=== PATIENT | male | born 1950 | race Caucasian/White ===

== ENCOUNTER 2017-11-01 15:26 | Inpatient (IN) | payer OTHER ==
--- NOTE | 2017-11-01 16:09 | PDOC ---
History of Present Illness - General Chief Complaint: Pain Stated Complaint: PAIN Time Seen by Provider: 11/01/17 15:52 - History of Present Illness Initial Comments: 11/01/17 16:08 67 yo M with h/o Left inguinal hernia repair x 2 who presents with diffuse, progressive,unremitting, lower predominant abdominal pain. Patient reports acute onset abdominal pain beginning at 1000 AM. Unable to describe character of pain as sharp, dull, crampy. Abdominal and scrotal Pain worse with movement. Denies postprandial pain. Patient with scrotal pain and swelling at baseline. Also endorses dysuria, nausea, decreased appetite, and chills. Denies vomiting, fevers, CP, SOB, diarrhea, constipation, blood per rectum, hematuria, urinary incontinence/frequency, flank pain, lightheadedness, LOC. (01/17/16) CT AP: Left inguinal hernia w/out evidence of incarceration. S/p left inguinal hernia repair [address] [facility], and multiple years ago in . Denies abdominal trauma. Smoking cessation 3 months ago ( 10/06 ppd for 20 years). Past History - Past Medical History Allergies/Adverse Reactions: Allergies Allergy/AdvReac Type Severity Reaction Status Date / Time aspirin Allergy Verified 01/17/16 14:20 Home Medications: Ambulatory Orders NK [No Known Home Medication] 01/17/16 - Surgical History Abdominal Surgery: Yes (HERNIA) - Suicide/Smoking/Psychosocial Hx Smoking History: Never smoked Hx Alcohol Use: No Drug/Substance Use Hx: No Review of Systems - Review of Systems Comments:: 11/01/17 16:08 GENERAL/CONSTITUTIONAL:+ Chills. No fever. No weakness. HEAD, EYES, EARS, NOSE AND THROAT: No change in vision. No ear pain or discharge. No sore throat.- CARDIOVASCULAR: No chest pain or shortness of breath RESPIRATORY: No cough, wheezing, or hemoptysis. GASTROINTESTINAL: + Abdominal pain. No nausea, vomiting, diarrhea or constipation. GENITOURINARY: + dysuria. No frequency, or change in urination. MUSCULOSKELETAL: No joint or muscle swelling or pain. No neck or back pain. SKIN: No rash NEUROLOGIC: No headache, vertigo, loss of consciousness, or change in strength/ sensation. ENDOCRINE: No increased thirst. No abnormal weight change HEMATOLOGIC/LYMPHATIC: No anemia, easy bleeding, or history of blood clots. ALLERGIC/IMMUNOLOGIC: No hives or skin allergy. *Physical Exam - Vital Signs Last Vital Signs Temp Pulse Resp BP Pulse Ox 98.3 F 82 20 116/90 99 11/01/17 15:43 11/01/17 15:43 11/01/17 15:43 11/01/17 15:43 11/01/17 15:43 - Physical Exam Comments: 11/01/17 16:08 GENERAL: Awake, alert, and fully oriented, in no acute distress HEAD: No signs of trauma, normocephalic, atraumatic EYES: PERRLA, EOMI, sclera anicteric, conjunctiva clear ENT: Hearing grossly normal, nares patent, oropharynx clear without exudates. Moist mucosa NECK: Normal ROM, no JVD, or masses LUNGS: No distress, speaks full sentences, clear to auscultation bilaterally HEART: Regular rate and rhythm, normal S1 and S2, no murmurs, rubs or gallops, peripheral pulses normal and equal bilaterally. ABDOMEN: Suprpapubic ttp. Lower abdominal ttp. Soft, nontender, normoactive bowel sounds. No guarding, non rigid, no rebound. No masses. Neg CVA ttp. : R > L inguinal/testicular swelling/bulge and mild ttp. Unable to illicit cremasteric reflex. Neg epidydmal ttp. Absent skin changes. EXTREMITIES : Normal inspection, Normal range of motion, no edema. No clubbing or cyanosis. SKIN: Warm, Dry, normal turgor, no rashes or lesions noted. ED Treatment Course - LABORATORY CBC & Chemistry Diagram: 11/01/17 16:00 11/01/17 16:00 Medical Decision Making - Medical Decision Making 11/01/17 16:55 67 yo M with h/o Left inguinal hernia repair x 2 who presents with diffuse, progressive,unremitting, lower predominant abdominal pain beginning at 1000 AM. Aggravated w/movement. Denies postprandial pain, lifting, straining. Patient with scrotal pain and swelling at baseline. Endorses dysuria, nausea, decreased appetite, and chills. Denies vomiting, fevers, CP, SOB, diarrhea, constipation, blood per rectum, hematuria, urinary incontinence/frequency, flank pain, lightheadedness, LOC. (01/17/16) CT AP: Left inguinal hernia w/out evidence of incarceration. S/p left inguinal hernia repair [address] [facility], and multiple years ago in [place] Denies abdominal trauma. Smoking cessation 3 months ago ( 10/06 ppd for 20 years). Hedmodynamically stable. Physical exam noteable for Suprpapubic ttp. Lower abdominal ttp. R > L inguinal/testicular swelling/ bulge and mild ttp. Unable to illicit cremasteric reflex. Neg epidydmal ttp. Absent skin changes. Will consider cystitis in setting of lower abdominal pain and dysuria. Also concern of hernia incarceration vs strangulation given h/o muliptle hernia repair and acute groin pain. Testicular pathology is possible with findings of testicular swelling and pain. DDx: Incarcerated vs. Strangulated hernia ( Less likely), Cystitis, varicocele, testicular Torsion, epidydymitis . ED Course: CBC, CMP, lactic acid UA CT AP W/CON BL LE Doppler Morphine 2mg, Zofran 4 mg CBC, CMP: Unremarkable 11/01/17 17:34 UA: Trace Ketones. Neg 11/01/17 18:42 lactic acid: 1.7 11/01/17 19:07 Scrotal U/S: No evidence of testicular torsion or epididymal orchitis. Rt side inguinal hernia contains bowel, fluid, fat. CT AP: Pending 11/01/17 19:[address] Carrion. *DC/Admit/Observation/Transfer Diagnosis at time of Disposition: Abdominal pain Qualifiers: Abdominal location: lower abdomen, unspecified Qualified Code(s): R10.30 - Lower abdominal pain, unspecified Inguinal hernia Qualifiers: Obstruction and gangrene presence: without obstruction or gangrene Laterality: unilateral Recurrence: recurrent Qualified Code(s): K40.91 - Unilateral inguinal hernia, without obstruction or gangrene, recurrent - Discharge Dispostion Condition at time of disposition: Stable - Referrals Referrals: Ryan Leyva MD [Primary Care Provider] - Alvaro Clark MD [Staff Physician] - - Patient Instructions Printed Discharge Instructions: Groin Hernia -- Adult Additional Instructions: Please return to the emergency department with any new or worsening symptoms or concerns. Please follow up with your primary care physician within the next 1-2 days. Please follow up with urology within 72 hours. - Post Discharge Activity - Attestations Physician Attestion: 11/01/17 18:19 I attest to the information provided in this note.
[2017-11-01 16:25] LABS: BASO % 0.6 % (0-2.0); EOS % 0.3 % (0-4.5); HEMATOCRIT 45.7 % (35.4-49); HEMOGLOBIN 15.1 GM/dL (11.7-16.9); LYMPH % 11.1 % (8-40); MCH 29.5 pg (25.7-33.7); MEAN CELL VOLUME 89.5 fl (80-96); MEAN PLT VOLUME 9.9 fl (7.5-11.1); PLATELET COUNT 167 K/MM3 (134-434); RBC 5.11 M/mm3 (4.00-5.60); RDW 13.8 % (11.9-15.9)
[2017-11-01 16:43] LABS: INR 1.05 (0.82-1.09); PROTHROMBIN TIME (PATIENT) 11.9 SEC (9.98-11.88)
[2017-11-01 16:50] LABS: ALBUMIN 4.4 g/dl (3.4-5.0); ALK PHOS 81 U/L (45-117); ANION GAP 7 (8-16); BILIRUBIN,TOTAL 0.4 mg/dL (0.2-1.0); BLOOD UREA NITROGEN 21 mg/dL (7-18); CALCIUM 8.8 mg/dL (8.5-10.1); CHLORIDE 105 mmol/L (98-107); CO2 28 mmol/L (21-32); CREATININE 0.9 mg/dL (0.7-1.3); GLUCOSE,RANDOM 91 mg/dL (74-106); POTASSIUM 4.6 mmol/L (3.5-5.1); SGOT/AST 22 U/L (15-37); SGPT/ALT 20 U/L (12-78); SODIUM 140 mmol/L (136-145); TOT PROT 7.9 g/dl (6.4-8.2)
[2017-11-01 16:57] LABS: URINE APPEARANCE CLEAR; URINE BILIRUBIN NEGATIVE (NEGATIVE); URINE BLOOD NEGATIVE (NEGATIVE); URINE COLOR YELLOW; URINE GLUCOSE (UA) NEGATIVE (NEGATIVE); URINE KETONE TRACE (NEGATIVE); URINE LEUK ESTERASE TRACE (NEGATIVE); URINE NITRITE NEGATIVE (NEGATIVE); URINE PROTEIN NEGATIVE (NEGATIVE)
[2017-11-01] MEDS ORDERED: ONDANSETRON 4 MG/2 ML VIAL IVPUSH ONE (17:19)
[2017-11-01] MEDS ORDERED: morphine CARPU-JECT 2 MG/1 ML DISP.SYRIN IVPUSH ONE (17:19)
[2017-11-01] MEDS ORDERED: ONDANSETRON 4 MG/2 ML VIAL ONE (17:22)
[2017-11-01] MEDS ORDERED: MORPHINE SULFATE 10 MG/1 ML *VIAL ONE (17:22)
--- NOTE | 2017-11-01 17:47 | PDOC ---
Attending Attestation - Resident Resident Name: Adrian Louise - ED Attending Attestation I have performed the following: I have examined & evaluated the patient, The case was reviewed & discussed with the resident, I agree w/resident's findings & plan, Exceptions are as noted - HPI HPI: 11/01/17 17:46 67 YO male p/w bilateral inguinal and c/o chronic swollen testicles. His supra pubic pain started today at 10 am today - Physicial Exam PE: 11/01/17 17:47 elderly 67 yo male with suprapubic pain head ncat neck supple lungs cta b/l cvs [id number] abd BILATERAL HERNIAS palable mild testicular swelling neuro axox3,ambulatory skin warm,dry psych appropriate 11/01/17 20:30 - Medical Decision Making 11/01/17 20:31 ct scan abd/pel reveals partial sbo, he will be adimtted by Dr Man
[2017-11-01 18:55] LABS: URINE MUCUS FEW
--- NOTE | 2017-11-01 19:35 | PDOC ---
*Physical Exam - Vital Signs Last Vital Signs Temp Pulse Resp BP Pulse Ox 98.6 F 87 20 131/75 98 11/01/17 18:58 11/01/17 18:58 11/01/17 18:58 11/01/17 18:58 11/01/17 18:58 ED Treatment Course - LABORATORY CBC & Chemistry Diagram: 11/01/17 16:00 11/01/17 16:00 - ADDITIONAL ORDERS Additional order review: Laboratory Results 11/01/17 11/01/17 11/01/17 16:25 16:00 16:00 PT with INR INR Sodium 140 Potassium 4.6 Chloride 105 Carbon Dioxide 28 Anion Gap 7 L BUN 21 H D Creatinine 0.9 D Creat Clearance w eGFR > 60 Random Glucose 91 Lactic Acid 1.7 Calcium 8.8 Total Bilirubin 0.4 D AST 22 ALT 20 Alkaline Phosphatase 81 Total Protein 7.9 Albumin 4.4 Urine Color Yellow Urine Appearance Clear Urine pH 6.0 Ur Specific [place] 1.023 Urine Protein Negative Urine Glucose (UA) Negative Urine Ketones Trace H Urine Blood Negative Urine Nitrite Negative Urine Bilirubin Negative Urine Urobilinogen 2.0 Ur Leukocyte Esterase Trace Urine WBC (Auto) 3 Urine RBC (Auto) 2 Urine Mucus Few 11/01/17 16:00 PT with INR 11.90 H INR 1.05 Sodium Potassium Chloride Carbon Dioxide Anion Gap BUN Creatinine Creat Clearance w eGFR Random Glucose Lactic Acid Calcium Total Bilirubin AST ALT Alkaline Phosphatase Total Protein Albumin Urine Color Urine Appearance Urine pH Ur Specific [place] Urine Protein Urine Glucose (UA) Urine Ketones Urine Blood Urine Nitrite Urine Bilirubin Urine Urobilinogen Ur Leukocyte Esterase Urine WBC (Auto) Urine RBC (Auto) Urine Mucus 11/01/17 16:00 RBC 5.11 MCV 89.5 MCHC 33.0 RDW 13.8 MPV 9.9 Neutrophils % 83.0 H Lymphocytes % 11.1 D Monocytes % 5.0 Eosinophils % 0.3 Basophils % 0.6 - Medications Given in the ED: ED Medications Discontinued Medications Generic Name Dose Route Start Last Admin Trade Name Freq PRN Reason Stop Dose Admin Morphine Sulfate 2 mg 11/01/17 17:19 11/01/17 17:20 Morphine Injection - IVPUSH 11/01/17 17:20 2 mg ONCE ONE Administration Ondansetron HCl 4 mg 11/01/17 17:19 11/01/17 17:21 Zofran Injection IVPUSH 11/01/17 17:20 4 mg ONCE ONE Administration Medical Decision Making - Medical Decision Making 11/01/17 19:35 Pt signed out to me by jewell Naranjo team. Pt is pending CTAP read and will f/u with urology if everything is negative. 11/01/17 20:29 CTAP Read: Impression: 1. High-grade small bowel obstruction (complete versus partial) with transition points at a large right inguinal hernia, as described above. Mildly dilated small bowel loop within the hernia sac - cannot exclude a closed loop. No definite bowel wall thickening to suggest strangulated bowel at this time. Please correlate for incarceration. Surgical evaluation is recommended. 2. Circumferential wall thickening versus underdistention of the distal esophagus. Please correlate for esophagitis. 3. A 3 mm nonobstructing right renal calculus. No hydroureteronephrosis. Dr. Man has accepted admission for a med/surg bed. Dr. Dempsey has been consulted for surgery. *DC/Admit/Observation/Transfer Diagnosis at time of Disposition: Abdominal pain Qualifiers: Abdominal location: lower abdomen, unspecified Qualified Code(s): R10.30 - Lower abdominal pain, unspecified Inguinal hernia Qualifiers: Obstruction and gangrene presence: without obstruction or gangrene Laterality: unilateral Recurrence: recurrent Qualified Code(s): K40.91 - Unilateral inguinal hernia, without obstruction or gangrene, recurrent - Discharge Dispostion Condition at time of disposition: Stable Admit: Yes - Referrals Referrals: Ryan Leyva MD [Primary Care Provider] - Alvaro Clark MD [Staff Physician] - - Patient Instructions Printed Discharge Instructions: Groin Hernia -- Adult Additional Instructions: Please return to the emergency department with any new or worsening symptoms or concerns. Please follow up with your primary care physician within the next 1-2 days. Please follow up with urology within 72 hours. - Post Discharge Activity
[2017-11-01] MEDS ORDERED: SODIUM CHLORIDE 0.9% 1000 ML INFUS.BAG IV ONE (20:45)
[2017-11-01] MEDS ORDERED: CEFAZOLIN 1 GM PUSH 1 GM/10 ML DISP.SYRIN IVPUSH ONE ×2 (20:58→21:04)
--- NOTE | 2017-11-01 23:16 | HP ---
Admitting History and Physical - Primary Care Physician PCP: Alhaji Man - Admission Chief Complaint: abdominal pain History of Present Illness: 67 yo M with h/o Left inguinal hernia repair x 2 who presents with diffuse, progressive,unremitting, lower predominant abdominal pain. Patient reports acute onset abdominal pain beginning at 1000 AM. Unable to describe character of pain as sharp, dull, crampy. Abdominal and scrotal Pain worse with movement. Denies postprandial pain. Patient with scrotal pain and swelling at baseline. Also endorses dysuria, nausea, decreased appetite, and chills. Denies vomiting, fevers, CP, SOB, diarrhea, constipation, blood per rectum, hematuria, urinary incontinence/frequency, flank pain, lightheadedness, LOC. (01/17/16) CT AP: Left inguinal hernia w/out evidence of incarceration. S/p left inguinal hernia repair 2 years ago [place], and multiple years ago in [place] - Smoking History Smoking history: Never smoked - Alcohol/Substance Use Hx Alcohol Use: No Home Medications - Allergies Allergies/Adverse Reactions: Allergies Allergy/AdvReac Type Severity Reaction Status Date / Time aspirin Allergy Verified 01/17/16 14:20 - Home Medications Home Medications: Ambulatory Orders NK [No Known Home Medication] 01/17/16 Physical Examination Vital Signs: Vital Signs Temperature 98.6 F 11/01/17 18:58 Pulse Rate 87 11/01/17 18:58 Respiratory Rate 20 11/01/17 18:58 Blood Pressure 131/75 11/01/17 18:58 O2 Sat by Pulse Oximetry (%) 98 11/01/17 18:58 Constitutional: Yes: Calm HENT: Yes: Atraumatic Neck: Yes: Supple Cardiovascular: Yes: Regular Rate and Rhythm Respiratory: Yes: CTA Bilaterally Gastrointestinal: Yes: Tenderness (R lower quadrant) Extremities: Yes: WNL Neurological: Yes: Alert, Oriented Labs: CBC, BMP 11/01/17 16:00 11/01/17 16:00 Imaging - Results Cat Scan: Report Reviewed Problem List - Problems (1) Abdominal pain Assessment/Plan: prn pain meds surgery eval Code(s): R10.9 - UNSPECIFIED ABDOMINAL PAIN Qualifiers: Abdominal location: lower abdomen, unspecified Qualified Code(s): R10.30 - Lower abdominal pain, unspecified (2) Inguinal hernia Assessment/Plan: prn pain meds surgery to see pt Code(s): K40.90 - UNIL INGUINAL HERNIA, W/O OBST OR GANGR, NOT SPCF RECUR Qualifiers: Obstruction and gangrene presence: without obstruction or gangrene Laterality: unilateral Recurrence: recurrent Qualified Code(s): K40.91 - Unilateral inguinal hernia, without obstruction or gangrene, recurrent Assessment/Plan Laboratory Tests 11/01/17 11/01/17 11/01/17 16:00 16:00 16:00 WBC 9.0 RBC 5.11 Hgb 15.1 Hct 45.7 MCV 89.5 MCH 29.5 MCHC 33.0 RDW 13.8 Plt Count 167 MPV 9.9 Neutrophils % 83.0 H Lymphocytes % 11.1 D Monocytes % 5.0 Eosinophils % 0.3 Basophils % 0.6 PT with INR 11.90 H INR 1.05 Sodium Potassium Chloride Carbon Dioxide Anion Gap BUN Creatinine Creat Clearance w eGFR Random Glucose Lactic Acid Calcium Total Bilirubin AST ALT Alkaline Phosphatase Total Protein Albumin Urine Color Yellow Urine Appearance Clear Urine pH 6.0 Ur Specific [place] 1.023 Urine Protein Negative Urine Glucose (UA) Negative Urine Ketones Trace H Urine Blood Negative Urine Nitrite Negative Urine Bilirubin Negative Urine Urobilinogen 2.0 Ur Leukocyte Esterase Trace Urine WBC (Auto) 3 Urine RBC (Auto) 2 Urine Mucus Few 11/01/17 11/01/17 16:00 16:25 WBC RBC Hgb Hct MCV MCH MCHC RDW Plt Count MPV Neutrophils % Lymphocytes % Monocytes % Eosinophils % Basophils % PT with INR INR Sodium 140 Potassium 4.6 Chloride 105 Carbon Dioxide 28 Anion Gap 7 L BUN 21 H D Creatinine 0.9 D Creat Clearance w eGFR > 60 Random Glucose 91 Lactic Acid 1.7 Calcium 8.8 Total Bilirubin 0.4 D AST 22 ALT 20 Alkaline Phosphatase 81 Total Protein 7.9 Albumin 4.4 Urine Color Urine Appearance Urine pH Ur Specific [place] Urine Protein Urine Glucose (UA) Urine Ketones Urine Blood Urine Nitrite Urine Bilirubin Urine Urobilinogen Ur Leukocyte Esterase Urine WBC (Auto) Urine RBC (Auto) Urine Mucus Active Medications Generic Name Dose Route Start Last Admin Trade Name Freq PRN Reason Stop Dose Admin Acetaminophen 325 mg 11/02/17 13:04 11/02/17 18:41 Tylenol - PO 11/05/17 13:03 325 mg Q4H PRN Administration Lactated Ringer's 1,000 mls @ 75 mls/hr 11/02/17 22:15 Lactated Ringers Solution IV ASDIR SEAN Morphine Sulfate 2 mg 11/02/17 13:07 Morphine Injection - IVPUSH Q4H PRN Oxycodone HCl 5 mg 11/02/17 13:04 11/02/17 18:42 Roxicodone - PO 5 mg Q4H PRN Administration
[2017-11-01] MEDS ORDERED: HYDROmorphone HCL CARPU-JECT 2 MG/1 ML DISP.SYRIN IVPB PRN (23:21)
[2017-11-01] MEDS ORDERED: SODIUM CHLORIDE 1,000 ML IV SCH (23:30)
[2017-11-02 03:53] VITALS: BMI 25.9
--- NOTE | 2017-11-02 07:15 | CONSULT ---
- Consultation REQUESTING PROVIDER: Sean Dempsey - General Surgery CONSULT REQUEST: We have been asked to surgically evaluate this patient for incarcerated RIH PCP: Alhaji Man HPI: Called to alo 67 yo male with PMHx as noted below. Presents to [facility] ED w/ c/o diffuse (LLQ/RLQ), progressive abd pain. Started around 10AM yesterday. Has known bilat inguinal hernia's. Of which, left has been repaired twice (once at [facility] and once in ). Admits to loss of appetite, nausea and chills. Some dysuria. Also c/o of some testicular pain. Denies fever, CP, SOB, VAZQUEZ, diarrhea, melena, hematochazia, flank pain, hematuria or trauma. Currently, resting in position of comfort. Still not passing flatus/stool. Imaging studies while patient in ED: 1. CT --> High-grade sb obstruction w/ transition points at a large right inguinal hernia. Mildly dilated sb loop within the hernia sac 2. Scrotal U/S: No evidence of testicular torsion or epididymal orchitis. Rt side inguinal hernia contains bowel, fluid, fat. PMHx: bilat inguinal, chronic swollen testicles PSHx: Left IHR x2 2016 at [facility] Home Meds: Denies. Allergies: ASA ROS: All systems reviewed and considered negative except for what's contained in HPI PE: GENERAL: alert. nad. HEAD: nc. at. EYES: PERRL, sclera anicteric, conjunctiva clear. NECK: Normal ROM, supple without lymphadenopathy, JVD, or masses. LUNGS: cta bilat anteriorly HEART: rrr ABDOMEN: Soft, mild suprapubic tenderness. Right inguinal region ttp. No bowel sounds auscultated over hernia : uncircumcised (skin retratced over the glans), no scrotal swelling/edema MUSCULOSKELETAL: neg cvat bilat UE: 2+ pulses, warm, well-perfused. No cyanosis. Cap refill <2 seconds. No peripheral edema. LE: 2+ pulses, warm, well-perfused. No calf tenderness. No peripheral edema. NEUROLOGICAL: Normal speech, gait not observed. PSYCH: Cooperative. Good eye contact. Appropriate mood and affect. SKIN: Warm, dry, normal turgor, no rashes or lesions noted. Last Vital Signs Temp Pulse Resp BP Pulse Ox 98.6 F 65 18 106/57 98 11/02/17 03:42 11/02/17 00:57 11/02/17 04:03 11/02/17 03:42 11/01/17 18:58 INR, PTT INR 1.05 (0.82-1.09) 11/01/17 16:00 CBC, BMP 11/01/17 16:00 11/01/17 16:00 Problem List - Problems (1) Inguinal hernia Assessment/Plan: Going to OR today around 9AM for repair of incarcerated inguinal hernia resulting in SBO NPO / IVF GI / DVT ppx Type and screen ordered Medical optimization / clearance Above plan discussed with Dr. Dempsey and agrees. Code(s): K40.90 - UNIL INGUINAL HERNIA, W/O OBST OR GANGR, NOT SPCF RECUR Qualifiers: Obstruction and gangrene presence: without obstruction or gangrene Laterality: unilateral Recurrence: recurrent Qualified Code(s): K40.91 - Unilateral inguinal hernia, without obstruction or gangrene, recurrent Visit type - Case Type Case Type: ED Admission - Emergency Emergency Visit: Yes ED Registration Date: 11/01/17 Care time: The patient presented to the Emergency Department on the above date and was hospitalized for further evaluation of their emergent condition. - New patient This patient is new to me today: Yes Date on this admission: 11/02/17
[2017-11-02 07:53] LABS: BASO % 0.3 % (0-2.0); EOS % 3.4 % (0-4.5); HEMATOCRIT 39.3 % (35.4-49); HEMOGLOBIN 12.8 GM/dL (11.7-16.9); MCH 29.1 pg (25.7-33.7); MCHC 32.5 g/dl (32.0-35.9); MEAN CELL VOLUME 89.5 fl (80-96); MEAN PLT VOLUME 9.8 fl (7.5-11.1); MONO % 7.3 % (3.8-10.2); PLATELET COUNT 147 K/MM3 (134-434); RBC 4.38 M/mm3 (4.00-5.60); RDW 13.6 % (11.9-15.9); WHITE BLOOD COUNT 6.5 K/mm3 (4.0-10.0)
[2017-11-02] MEDS ORDERED: BUPIVACAINE HCL/PF 0.5% (5MG/ML) 10 ML VIAL ONE (08:37)
--- NOTE | 2017-11-02 08:56 | PN ---
Progress Note (short form) - Note Progress Note: Attending Surgeon 67 y/o male presented to the ER w/ right groin pain and mass; w/u reveals incarcerated RIH; for repair RIH; possible SBR and AOSDN; r/b/t/a's d/w patient and informed consent obtained; possible recurrence discussed as well. Sean Dempsey MD FACS
[2017-11-02] MEDS ORDERED: HYDROmorphone HCL CARPU-JECT 1 MG/1 ML DISP.SYRIN IVPUSH PRN ×2 (09:05→12:04)
[2017-11-02] MEDS ORDERED: LACTATED RINGERS SOLUTION 1,000 ML IV SCH ×3 (09:15→22:15)
[2017-11-02] MEDS ORDERED: ROCURONIUM BROMIDE 50 MG/5 ML VIAL ONE (09:19)
[2017-11-02] MEDS ORDERED: LIDOCAINE HCL/PF 2% SDV 5ML VIAL ONE (09:19)
[2017-11-02] MEDS ORDERED: PROPOFOL 20 ML ONE ×2 (09:19)
[2017-11-02] MEDS ORDERED: MIDAZOLAM HCL 2 MG/2 ML SINGLE DOSE VIAL ONE (09:19)
[2017-11-02] MEDS ORDERED: ceFAZolin SODIUM 1 GM VIAL ONE (09:19)
[2017-11-02 09:28] LABS: ANION GAP 8 (8-16); BILIRUBIN,TOTAL 0.6 mg/dL (0.2-1.0); BLOOD UREA NITROGEN 16 mg/dL (7-18); CALCIUM 7.9 mg/dL (8.5-10.1); CHLORIDE 109 mmol/L (98-107); CO2 29 mmol/L (21-32); CREATININE 0.7 mg/dL (0.7-1.3); GLUCOSE,RANDOM 72 mg/dL (74-106); SGOT/AST 19 U/L (15-37); SGPT/ALT 15 U/L (12-78); SODIUM 146 mmol/L (136-145); TOT PROT 6.1 g/dl (6.4-8.2)
[2017-11-02 09:29] LABS: ALK PHOS 61 U/L (45-117)
[2017-11-02] MEDS ORDERED: ceFAZolin SODIUM 1 GM VIAL IVPB ONE (09:40)
[2017-11-02] MEDS ORDERED: FLU VACCINE QUAD 60 MCG/0.5 ML (MDV 17-18) IM ONE ×2 (10:00→18:00)
[2017-11-02] MEDS ORDERED: BUPIVACAINE HCL/PF 0.5% (5MG/ML) 10 ML VIAL IJ ONE ×2 (10:04)
[2017-11-02] MEDS ORDERED: LIDOCAINE HCL 1%, 10 MG/ML (20ML VIAL) INF ONE ×2 (10:04)
[2017-11-02] MEDS ORDERED: GLYCOPYRROLATE 0.2 MG/1 ML VIAL ONE (10:32)
[2017-11-02] MEDS ORDERED: DEXAMETHASONE SOD PHOSPHATE 4 MG/1 ML VIAL ONE (10:32)
[2017-11-02] MEDS ORDERED: NEOSTIGMINE METHYLSULFATE 0.5 MG/ML - 10 ML MDV ONE (10:32)
--- NOTE | 2017-11-02 11:15 | OP ---
Operative Note - Note: Operative Date: 11/02/17 Pre-Operative Diagnosis: incarcerated right inguinal hernia Operation: repair incarcerated right inguinal hernia w/mesh Findings: incarcerated right inguinal hernia w/omentum; viable bowel and clear peritoneal fluid. Post-Operative Diagnosis: Same as Pre-op Surgeon: Sean Dempsey Prison Warden: Carli Larsen Anesthesia: General Specimens Removed: hernia sac Estimated Blood Loss (mls): 20
--- NOTE | 2017-11-02 11:24 | SURG ---
Surgery Refrigeration Plant Operator Note Refrigeration Plant Operator: Faraz Shoemaker PA-C Date of Service: 11/02/17 Diagnosis: Incarcerated right inguinal hernia (bowel contents in hernia sac resulting in SBO) Procedure: Repair right incarcerated inguinal hernia Findings: omentum and small bowel (viable) within hernia sac I was present for the entirety of the operative procedure. For further detail, please refer to operative report. Visit type - Case Type Case Type: ED Admission
[2017-11-02] MEDS ORDERED: LIDOCAINE HCL 1%, 10 MG/ML (20ML VIAL) ONE (11:28)
[2017-11-02] MEDS ORDERED: HYDROmorphone HCL CARPU-JECT 2 MG/1 ML DISP.SYRIN ONE (11:41)
[2017-11-02] MEDS ORDERED: SODIUM CHLORIDE 1,000 ML IV SCH (12:04)
[2017-11-02] MEDS ORDERED: MORPHINE SULFATE 10 MG/1 ML *VIAL IVPUSH PRN ×2 (13:05→13:07)
--- NOTE | 2017-11-02 13:11 | PN ---
Progress Note, Physician History of Present Illness: s/p surgery - Current Medication List Current Medications: Active Medications Acetaminophen (Tylenol -) 325 mg PO Q4H PRN Stop: 11/05/17 13:03 Hydromorphone HCl (Dilaudid Injection -) 1 mg IVPUSH [id number] PRN PRN Reason: PAIN-PACU ORDER X 4 DOSES ONLY Lactated Ringer's (Lactated Ringers Solution) 1,000 mls @ 125 mls/hr IV ASDIR SEAN Sodium Chloride (Normal Saline -) 1,000 mls @ 75 mls/hr IV ASDIR SEAN Lactated Ringer's (Lactated Ringers Solution) 1,000 mls @ 75 mls/hr IV ASDIR SEAN Morphine Sulfate (Morphine Injection -) 2 mg IVPUSH Q4H PRN Oxycodone HCl (Roxicodone -) 5 mg PO Q4H PRN - Objective Vital Signs: Vital Signs Temperature 98.7 F 11/02/17 11:18 Pulse Rate 70 11/02/17 12:00 Respiratory Rate 16 11/02/17 12:00 Blood Pressure 120/77 11/02/17 12:00 O2 Sat by Pulse Oximetry (%) 100 11/02/17 12:00 Constitutional: Yes: No Distress HENT: Yes: Atraumatic Neck: Yes: Supple Cardiovascular: Yes: Regular Rate and Rhythm Respiratory: Yes: CTA Bilaterally Gastrointestinal: Yes: Normal Bowel Sounds, Other (R inguinal area wound dressing i place) Extremities: Yes: WNL Neurological: Yes: Alert, Oriented Labs: CBC, BMP 11/02/17 06:30 11/02/17 06:30 INR, PTT INR 1.05 (0.82-1.09) 11/01/17 16:00 Problem List - Problems (1) Abdominal pain Assessment/Plan: prn pain meds Code(s): R10.9 - UNSPECIFIED ABDOMINAL PAIN Qualifiers: Abdominal location: lower abdomen, unspecified Qualified Code(s): R10.30 - Lower abdominal pain, unspecified (2) Inguinal hernia Assessment/Plan: s/p surgery on clear liquid diet Code(s): K40.90 - UNIL INGUINAL HERNIA, W/O OBST OR GANGR, NOT SPCF RECUR Qualifiers: Obstruction and gangrene presence: without obstruction or gangrene Laterality: unilateral Recurrence: recurrent Qualified Code(s): K40.91 - Unilateral inguinal hernia, without obstruction or gangrene, recurrent
[2017-11-02] MEDS: LACTATED RINGERS SOLUTION 1,000 ML IV SCH ×2 (13:35→22:07)
--- NOTE | 2017-11-02 13:49 | EKG ---
Test Reason : Blood Pressure : / mmHG Vent. Rate : 061 BPM Atrial Rate : 061 BPM P-R Int : 162 ms QRS Dur : 112 ms QT Int : 412 ms P-R-T Axes : 062 049 030 degrees QTc Int : 414 ms NORMAL SINUS RHYTHM NORMAL ECG NO PREVIOUS ECGS AVAILABLE Confirmed by MD NATHANAEL, LIBRA ([id number]) on 11/02/2017 1:49:04 PM Referred By: LATONIA NIXON DR Confirmed By:LIBRA HUFFMAN MD
--- NOTE | 2017-11-02 14:01 | CON.ID ---
Consult Consult Specialty:: infectious diseases Reason for Consultation:: abd pain - History of Present Illness Chief Complaint: abd pain rt side History of Present Illness: 67 yo M with h/o Left inguinal hernia repair x 2 admitted because of, progressive,unremitting, lower predominant abdominal pain. patient was worked up and found to have incarcerated rt ing hernia patient was taken to surgery and operated currently patient is post op c/o of pain at operated site dressing looks good with some blood staining - History Source History Provided By: Patient, Medical Record Limitations to Obtaining History: Language Barrier - Alcohol/Substance Use Hx Alcohol Use: No - Smoking History Smoking history: Never smoked Home Medications - Allergies Allergies/Adverse Reactions: Allergies Allergy/AdvReac Type Severity Reaction Status Date / Time aspirin Allergy Verified 01/17/16 14:20 - Home Medications Home Medications: Ambulatory Orders NK [No Known Home Medication] 01/17/16 Review of Systems - Review of Systems Constitutional: reports: No Symptoms Eyes: reports: No Symptoms HENT: reports: No Symptoms Neck: reports: No Symptoms Cardiovascular: reports: No Symptoms Respiratory: reports: No Symptoms Gastrointestinal: reports: Abdominal Pain Musculoskeletal: reports: No Symptoms Integumentary: reports: No Symptoms Neurological: reports: No Symptoms Endocrine: reports: No Symptoms Hematology/Lymphatic: reports: No Symptoms Psychiatric: reports: No Symptoms Physical Exam Vital Signs: Vital Signs Temperature 98.4 F 11/02/17 12:30 Pulse Rate 66 11/02/17 12:30 Respiratory Rate 14 11/02/17 12:30 Blood Pressure 131/76 11/02/17 12:30 O2 Sat by Pulse Oximetry (%) 100 11/02/17 12:30 Constitutional: Yes: Well Nourished, Calm, Mild Distress Eyes: Yes: Conjunctiva Clear Neck: Yes: Supple, Trachea Midline Respiratory: Yes: Regular, CTA Bilaterally Gastrointestinal: Yes: Soft, Hypoactive Bowel Sounds Musculoskeletal: Yes: WNL Extremities: Yes: WNL Wound/Incision: Yes: Other (dressing slightly wet) Neurological: Yes: Alert, Oriented Psychiatric: Yes: Alert, Oriented Labs: CBC, BMP 11/02/17 06:30 11/02/17 06:30 Imaging - Results Cat Scan: Report Reviewed, Image Reviewed Ultrasound: Report Reviewed, Image Reviewed Assessment/Plan Problem List - Problems (1) Abdominal pain Code(s): R10.9 - UNSPECIFIED ABDOMINAL PAIN Qualifiers: Abdominal location: lower abdomen, unspecified Qualified Code(s): R10.30 - Lower abdominal pain, unspecified (2) Inguinal hernia Code(s): K40.90 - UNIL INGUINAL HERNIA, W/O OBST OR GANGR, NOT SPCF RECUR Qualifiers: Obstruction and gangrene presence: without obstruction or gangrene Laterality: unilateral Recurrence: recurrent Qualified Code(s): K40.91 - Unilateral inguinal hernia, without obstruction or gangrene, recurrent plan continue mgmt as per surgery no abx at this time will continue to watch rest as per primary team
[2017-11-02] MEDS: ACETAMINOPHEN 325 MG TABLET (FP) PO PRN (18:41)
[2017-11-02] MEDS: oxyCODONE HCL 5 MG TABLET PO PRN (18:42)
[2017-11-03 06:53] LABS: HEMOGLOBIN 13.6 GM/dL (11.7-16.9); MCH 29.6 pg (25.7-33.7); MCHC 33.3 g/dl (32.0-35.9); MEAN PLT VOLUME 9.7 fl (7.5-11.1); PLATELET COUNT 152 K/MM3 (134-434); RBC 4.61 M/mm3 (4.00-5.60); RDW 13.5 % (11.9-15.9); WHITE BLOOD COUNT 9.5 K/mm3 (4.0-10.0)
[2017-11-03 07:10] LABS: ANION GAP 6 (8-16); BLOOD UREA NITROGEN 11 mg/dL (7-18); CALCIUM 8.3 mg/dL (8.5-10.1); CHLORIDE 102 mmol/L (98-107); CO2 30 mmol/L (21-32); CREATININE 0.8 mg/dL (0.7-1.3); GLUCOSE,RANDOM 82 mg/dL (74-106); SODIUM 138 mmol/L (136-145)
--- NOTE | 2017-11-03 08:03 | PN ---
Progress Note (short form) - Note Progress Note: POD #1 Alert. Supine in bed. Resting comfortably. C/o ild incisional tenderness. Adequate pain control via prn meds. Started on liquid diet last night and is tolerating. Denies n/v/f/c, CP, SOB. Last Vital Signs Temp Pulse Resp BP Pulse Ox 97.5 F L 72 18 140/81 95 11/03/17 06:00 11/03/17 06:00 11/03/17 06:00 11/03/17 06:00 11/02/17 21:00 CBC 11/03/17 06:17 Gen: nad ABD: soft. Right groin dressing c/d/i. No hematoma : scrotal swelling (to be expected). Testicles descended x2. Problem List - Problems (1) Inguinal hernia Assessment/Plan: POD #1 s/p repair incarcerated right inguinal hernia with progrip mesh Advance diet as tolerated Pain management prn OOB and ambulate Incentive spirometer Cont medical management No further surgical intervention On behalf of Dr. Dempsey, thank you for the opportunity to participate in your patient's care. Code(s): K40.90 - UNIL INGUINAL HERNIA, W/O OBST OR GANGR, NOT SPCF RECUR Qualifiers: Obstruction and gangrene presence: without obstruction or gangrene Laterality: unilateral Recurrence: recurrent Qualified Code(s): K40.91 - Unilateral inguinal hernia, without obstruction or gangrene, recurrent
--- NOTE | 2017-11-03 09:39 | OP ---
DATE OF OPERATION: 11/02/2017 PREOPERATIVE DIAGNOSIS: Incarcerated right inguinal hernia. POSTOPERATIVE DIAGNOSIS: Incarcerated right inguinal hernia. PROCEDURE: Repair of incarcerated right inguinal hernia with mesh. SURGEON: Sean Dempsey MD FARM PL[employer]NER: Faraz Shoemaker PA-C ANESTHESIA: General. OPERATIVE FINDINGS: There was an incarcerated right inguinal hernia preoperatively which contained small bowel which upon induction of general anesthesia reduced spontaneously. The findings in the operating room at the time of the surgery were a large indirect inguinal hernia sac extending down to the scrotum containing clear peritoneal fluid. There was a weak inguinal floor and exploration of the small bowel through the internal ring did not reveal any evidence of compromised small bowel and the rest of the findings were unremarkable. PROCEDURE: The patient was placed on the operating room table in the supine position and after the induction of general anesthesia the patient's right groin and abdomen were prepped with ChloraPrep and draped in sterile fashion. A timeout was taken. A transverse groin incision was made with a scalpel and taken down through skin and subcutaneous tissue and Alejo fascia. The external oblique fascia was identified and opened proximally and distally in the direction of its fibers. The cord structures and nerve were elevated at the level of the pubic tubercle and a Mell drain placed around them for retraction and identification purposes. The hernia had been reduced at this point and the indirect sac was identified and dissected free from the cord structures all the way up to the level of the internal ring. The sac was opened and previously noted findings again were observed. Redundant sac was excised using electrocautery and sent for pathological examination and then high ligation of the sac was carried out with 2-0 Vicryl suture. Next , the floor of the inguinal canal was repaired by fashioning a piece of ProGrip mesh into the defect and anchoring it at the pubic tubercle, shelving edge and conjoint tendon, respectively. A keyhole was created for the cord structures and the tails of the mesh brought above the level of the internal ring, crossed over each other and anchored there with interrupted 2-0 Prolene. The internal ring was sized and found to be adequate and then hemostasis was checked for and noted to be good. The wound was copiously irrigated with sterile saline and then the external oblique fascia was closed over the cord structures, recreating the external ring, using continuous 2-0 Vicryl. Alejo fascia was reapproximated with interrupted 2-0 Vicryl, the deep dermis with interrupted 3-0 Vicryl and the skin edges with 4-0 Monocryl in a subcuticular continuous fashion. Steri-Strips, fluffs and dry sterile dressings were placed and the procedure terminated at this point and the patient aroused from general anesthesia and transferred to the postanesthesia care unit in stable condition, awake and alert. ESTIMATED BLOOD LOSS: Approximately 20 mL. REPLACEMENTS: Crystalloid. DRAINS: None. SPECIMEN: Hernia sac to Pathology. I, Sean Dempsey MD, was physically present in the operating room from the time the patient was placed on the operating room table until he was transferred to the postanesthesia care unit in my accompaniment. Sean Dempsey MD [id number] MTDD
--- NOTE | 2017-11-03 14:13 | PN ---
Progress Note, Physician History of Present Illness: stable pain at the operated site - Current Medication List Current Medications: Active Medications Acetaminophen (Tylenol -) 325 mg PO Q4H PRN Stop: 11/05/17 13:03 Last Admin: 11/02/17 18:41 Dose: 325 mg Lactated Ringer's (Lactated Ringers Solution) 1,000 mls @ 75 mls/hr IV ASDIR SEAN Morphine Sulfate (Morphine Injection -) 2 mg IVPUSH Q4H PRN Oxycodone HCl (Roxicodone -) 5 mg PO Q4H PRN Last Admin: 11/02/17 18:42 Dose: 5 mg - Objective Vital Signs: Vital Signs Temperature 98.4 F 11/03/17 10:00 Pulse Rate 74 11/03/17 10:00 Respiratory Rate 16 11/03/17 10:00 Blood Pressure 125/77 11/03/17 10:00 O2 Sat by Pulse Oximetry (%) 100 11/03/17 09:00 Constitutional: Yes: Calm, Mild Distress Cardiovascular: Yes: Regular Rate and Rhythm Respiratory: Yes: Regular, CTA Bilaterally Gastrointestinal: Yes: Soft, Hypoactive Bowel Sounds, Other (pain at the operated site) Musculoskeletal: Yes: WNL Extremities: Yes: WNL Neurological: Yes: Alert, Oriented Psychiatric: Yes: Alert, Oriented Labs: CBC, BMP 11/03/17 06:17 11/03/17 06:17 INR, PTT INR 1.05 (0.82-1.09) 11/01/17 16:00 Assessment/Plan Problem List - Problems (1) Abdominal pain Code(s): R10.9 - UNSPECIFIED ABDOMINAL PAIN Qualifiers: Abdominal location: lower abdomen, unspecified Qualified Code(s): R10.30 - Lower abdominal pain, unspecified (2) Inguinal hernia Code(s): K40.90 - UNIL INGUINAL HERNIA, W/O OBST OR GANGR, NOT SPCF RECUR Qualifiers: Obstruction and gangrene presence: without obstruction or gangrene Laterality: unilateral Recurrence: recurrent Qualified Code(s): K40.91 - Unilateral inguinal hernia, without obstruction or gangrene, recurrent plan continue current mgmt pain mgmt rest as per surgery and primary team
--- NOTE | 2017-11-03 17:37 | PN ---
Progress Note, Physician History of Present Illness: feeling better - Current Medication List Current Medications: Active Medications Acetaminophen (Tylenol -) 325 mg PO Q4H PRN Stop: 11/05/17 13:03 Last Admin: 11/02/17 18:41 Dose: 325 mg Lactated Ringer's (Lactated Ringers Solution) 1,000 mls @ 75 mls/hr IV ASDIR SEAN Morphine Sulfate (Morphine Injection -) 2 mg IVPUSH Q4H PRN Oxycodone HCl (Roxicodone -) 5 mg PO Q4H PRN Last Admin: 11/02/17 18:42 Dose: 5 mg - Objective Vital Signs: Vital Signs Temperature 98.5 F 11/03/17 14:48 Pulse Rate 76 11/03/17 14:48 Respiratory Rate 20 11/03/17 14:48 Blood Pressure 123/77 11/03/17 14:48 O2 Sat by Pulse Oximetry (%) 100 11/03/17 09:00 Constitutional: Yes: No Distress HENT: Yes: Atraumatic Neck: Yes: Supple Cardiovascular: Yes: Regular Rate and Rhythm Respiratory: Yes: CTA Bilaterally Gastrointestinal: Yes: Normal Bowel Sounds, Other (R inguinal area at the surgery site) Extremities: Yes: WNL Neurological: Yes: Alert, Oriented Labs: CBC, BMP 11/03/17 06:17 11/03/17 06:17 INR, PTT INR 1.05 (0.82-1.09) 11/01/17 16:00 Problem List - Problems (1) Abdominal pain Assessment/Plan: prn pain meds tolerating clear liquid diet Code(s): R10.9 - UNSPECIFIED ABDOMINAL PAIN Qualifiers: Abdominal location: lower abdomen, unspecified Qualified Code(s): R10.30 - Lower abdominal pain, unspecified (2) Inguinal hernia Assessment/Plan: prn pain meds s/p surgery Code(s): K40.90 - UNIL INGUINAL HERNIA, W/O OBST OR GANGR, NOT SPCF RECUR Qualifiers: Obstruction and gangrene presence: without obstruction or gangrene Laterality: unilateral Recurrence: recurrent Qualified Code(s): K40.91 - Unilateral inguinal hernia, without obstruction or gangrene, recurrent
--- NOTE | 2017-11-04 09:26 | PN ---
Progress Note (short form) - Note Progress Note: Attending Surgeon POD#2 Tolerating clear liquid diet; c/o difficulty voiding w/frequency and hesitancy VSS AF abdomen-soft; flat and non tender; incision c/d/i genitalia-unremarkable IMP:doing well PLAN: advance diet; Urology evaluation; he may f/u in my office as an outpatient. Sean Dempsey MD FACS
--- NOTE | 2017-11-04 16:26 | PN ---
Progress Note, Physician History of Present Illness: stable rt sided scrotal swelling not passing urine properly otherwise stable - Current Medication List Current Medications: Active Medications Acetaminophen (Tylenol -) 325 mg PO Q4H PRN Stop: 11/05/17 13:03 Last Admin: 11/02/17 18:41 Dose: 325 mg Oxycodone HCl (Roxicodone -) 5 mg PO Q4H PRN Last Admin: 11/02/17 18:42 Dose: 5 mg - Objective Vital Signs: Vital Signs Temperature 98.7 F 11/04/17 14:23 Pulse Rate 91 H 11/04/17 14:23 Respiratory Rate 18 11/04/17 14:23 Blood Pressure 127/66 11/04/17 14:23 O2 Sat by Pulse Oximetry (%) 100 11/04/17 09:00 Constitutional: Yes: No Distress, Calm Cardiovascular: Yes: Regular Rate and Rhythm Respiratory: Yes: Regular, CTA Bilaterally Gastrointestinal: Yes: Normal Bowel Sounds, Soft Musculoskeletal: Yes: WNL Extremities: Yes: WNL Wound/Incision: Yes: Dressing Dry and Intact Neurological: Yes: Alert, Oriented Psychiatric: Yes: Alert, Oriented Labs: CBC, BMP 11/03/17 06:17 11/03/17 06:17 INR, PTT INR 1.05 (0.82-1.09) 11/01/17 16:00 Assessment/Plan Problem List - Problems (1) Abdominal pain Code(s): R10.9 - UNSPECIFIED ABDOMINAL PAIN Qualifiers: Abdominal location: lower abdomen, unspecified Qualified Code(s): R10.30 - Lower abdominal pain, unspecified (2) Inguinal hernia Code(s): K40.90 - UNIL INGUINAL HERNIA, W/O OBST OR GANGR, NOT SPCF RECUR Qualifiers: Obstruction and gangrene presence: without obstruction or gangrene Laterality: unilateral Recurrence: recurrent Qualified Code(s): K40.91 - Unilateral inguinal hernia, without obstruction or gangrene, recurrent plan continue current mgmt pain mgmt rest as per surgery elevation of scrotum watch for retention
--- NOTE | 2017-11-04 17:52 | PN ---
Progress Note, Physician History of Present Illness: cant pass urine much - Current Medication List Current Medications: Active Medications Acetaminophen (Tylenol -) 325 mg PO Q4H PRN Stop: 11/05/17 13:03 Last Admin: 11/02/17 18:41 Dose: 325 mg Oxycodone HCl (Roxicodone -) 5 mg PO Q4H PRN Last Admin: 11/02/17 18:42 Dose: 5 mg - Objective Vital Signs: Vital Signs Temperature 98.7 F 11/04/17 14:23 Pulse Rate 91 H 11/04/17 14:23 Respiratory Rate 18 11/04/17 14:23 Blood Pressure 127/66 11/04/17 14:23 O2 Sat by Pulse Oximetry (%) 100 11/04/17 09:00 HENT: Yes: Atraumatic Neck: Yes: Supple Cardiovascular: Yes: Regular Rate and Rhythm Respiratory: Yes: CTA Bilaterally Gastrointestinal: Yes: Normal Bowel Sounds, Other (R inguinal hernia repair) Extremities: Yes: WNL Neurological: Yes: Alert, Oriented Labs: CBC, BMP 11/03/17 06:17 11/03/17 06:17 INR, PTT INR 1.05 (0.82-1.09) 11/01/17 16:00 Problem List - Problems (1) Abdominal pain Code(s): R10.9 - UNSPECIFIED ABDOMINAL PAIN Qualifiers: Abdominal location: lower abdomen, unspecified Qualified Code(s): R10.30 - Lower abdominal pain, unspecified (2) Inguinal hernia Code(s): K40.90 - UNIL INGUINAL HERNIA, W/O OBST OR GANGR, NOT SPCF RECUR Qualifiers: Obstruction and gangrene presence: without obstruction or gangrene Laterality: unilateral Recurrence: recurrent Qualified Code(s): K40.91 - Unilateral inguinal hernia, without obstruction or gangrene, recurrent (3) Urinary retention Assessment/Plan: post op naheed straight cath and observe Code(s): R33.9 - RETENTION OF URINE, UNSPECIFIED
[2017-11-05] MEDS: ACETAMINOPHEN 325 MG TABLET (FP) PO PRN (11:07)
[2017-11-05] MEDS: oxyCODONE HCL 5 MG TABLET PO PRN (11:08)
--- NOTE | 2017-11-05 12:54 | PN ---
Progress Note, Physician History of Present Illness: still cannot pass urine - Current Medication List Current Medications: Active Medications Acetaminophen (Tylenol -) 325 mg PO Q4H PRN Stop: 11/05/17 13:03 Last Admin: 11/05/17 11:07 Dose: 325 mg Oxycodone HCl (Roxicodone -) 5 mg PO Q4H PRN Last Admin: 11/05/17 11:08 Dose: 5 mg - Objective Vital Signs: Vital Signs Temperature 99.0 F 11/05/17 10:00 Pulse Rate 64 11/05/17 10:00 Respiratory Rate 18 11/05/17 10:00 Blood Pressure 105/63 11/05/17 10:00 O2 Sat by Pulse Oximetry (%) 99 11/04/17 21:00 Constitutional: Yes: No Distress HENT: Yes: Atraumatic Neck: Yes: Supple Cardiovascular: Yes: Regular Rate and Rhythm Respiratory: Yes: CTA Bilaterally Gastrointestinal: Yes: Normal Bowel Sounds, Tenderness (r inguinal area due to surgery) Genitourinary: Yes: Scrotal Edema Extremities: Yes: WNL Labs: CBC, BMP 11/03/17 06:17 11/03/17 06:17 INR, PTT INR 1.05 (0.82-1.09) 11/01/17 16:00 Problem List - Problems (1) Abdominal pain Assessment/Plan: prn pain meds tolerating regular diet on stool softener Code(s): R10.9 - UNSPECIFIED ABDOMINAL PAIN Qualifiers: Abdominal location: lower abdomen, unspecified Qualified Code(s): R10.30 - Lower abdominal pain, unspecified (2) Inguinal hernia Assessment/Plan: prn pain meds s/p surgery Code(s): K40.90 - UNIL INGUINAL HERNIA, W/O OBST OR GANGR, NOT SPCF RECUR Qualifiers: Obstruction and gangrene presence: without obstruction or gangrene Laterality: unilateral Recurrence: recurrent Qualified Code(s): K40.91 - Unilateral inguinal hernia, without obstruction or gangrene, recurrent (3) Urinary retention Assessment/Plan: post op will straight cath start flomax urology eval Code(s): R33.9 - RETENTION OF URINE, UNSPECIFIED
[2017-11-05] MEDS ORDERED: DOCUSATE SODIUM 100 MG CAPSULE (FP) PO PRN (14:32)
[2017-11-05] MEDS: TAMSULOSIN HCL 0.4 MG CAP.ER.24H (FP) PO SCH (14:50)
--- NOTE | 2017-11-05 15:13 | PN ---
Progress Note, Physician History of Present Illness: doing well still unable to pass urine has been straight catheterized - Current Medication List Current Medications: Active Medications Docusate Sodium (Colace -) 100 mg PO BID PRN PRN Reason: CONSTIPATION Tamsulosin HCl (Flomax -) 0.4 mg PO DAILY@0830 [facility] Last Admin: 11/05/17 14:50 Dose: 0.4 mg - Objective Vital Signs: Vital Signs Temperature 99.0 F 11/05/17 10:00 Pulse Rate 64 11/05/17 10:00 Respiratory Rate 11/05/17 10:00 Blood Pressure 105/63 11/05/17 10:00 O2 Sat by Pulse Oximetry (%) 99 11/04/17 21:00 Constitutional: Yes: No Distress, Calm Cardiovascular: Yes: Regular Rate and Rhythm Respiratory: Yes: Regular Gastrointestinal: Yes: Normal Bowel Sounds, Soft, Tenderness (at the operated site) Musculoskeletal: Yes: WNL Extremities: Yes: WNL Wound/Incision: Yes: Other Neurological: Yes: Alert, Oriented Psychiatric: Yes: Alert, Oriented Labs: CBC, BMP 11/03/17 06:17 11/03/17 06:17 INR, PTT INR 1.05 (0.82-1.09) 11/01/17 16:00 Assessment/Plan Problem List - Problems (1) Abdominal pain Code(s): R10.9 - UNSPECIFIED ABDOMINAL PAIN Qualifiers: Abdominal location: lower abdomen, unspecified Qualified Code(s): R10.30 - Lower abdominal pain, unspecified (2) Inguinal hernia Code(s): K40.90 - UNIL INGUINAL HERNIA, W/O OBST OR GANGR, NOT SPCF RECUR Qualifiers: Obstruction and gangrene presence: without obstruction or gangrene Laterality: unilateral Recurrence: recurrent Qualified Code(s): K40.91 - Unilateral inguinal hernia, without obstruction or gangrene, recurrent 3 scrotal swelling plan continue current mgmt pain mgmt rest as per surgery scrotal support in place
--- NOTE | 2017-11-05 16:36 | CON.GU ---
Consult Consult Specialty:: Reason for Consultation:: urinary retention - History of Present Illness Chief Complaint: urinary retention History of Present Illness: 67 year old male post op from incarcerated inguinal hernia repair with urinary retention. He denies previous history. He is also complaining of constipation,. - History Source History Provided By: Patient Limitations to Obtaining History: No Limitations - Past Medical History Renal/: No: Renal Failure, Renal Inusuff, BPH, Cancer, Hematuria, Hemodialysis , Neurogenic Bladder, Renal Calculi, UTI, Other - Alcohol/Substance Use Hx Alcohol Use: No - Smoking History Smoking history: Never smoked Home Medications - Allergies Allergies/Adverse Reactions: Allergies Allergy/AdvReac Type Severity Reaction Status Date / Time aspirin Allergy Verified 01/17/16 14:20 - Home Medications Home Medications: Ambulatory Orders NK [No Known Home Medication] 01/17/16 Review of Systems - Review of Systems Genitourinary: reports: Incontinence. denies: Hematuria Physical Exam- Vital Signs: Vital Signs Temperature 98.0 F 11/05/17 14:16 Pulse Rate 65 11/05/17 14:16 Respiratory Rate 22 11/05/17 14:16 Blood Pressure 108/64 11/05/17 14:16 O2 Sat by Pulse Oximetry (%) 99 11/04/17 21:00 Gastrointestinal: Yes: Soft Renal/: Yes: Bladder Distention. No: CVA Tenderness - Left, CVA Tenderness - Right, Ruiz Present, Hematuria Prostate Exam: Yes: Other (enlarged) Labs: CBC, BMP 11/03/17 06:17 11/03/17 06:17 Problem List - Problems (1) Urinary retention Assessment/Plan: ruiz placed. flomax, proscar. Manage any constipation. Code(s): R33.9 - RETENTION OF URINE, UNSPECIFIED
[2017-11-06] MEDS: TAMSULOSIN HCL 0.4 MG CAP.ER.24H (FP) PO SCH (10:30)
[2017-11-06] MEDS: FINASTERIDE 5 MG TABLET (FP) PO SCH (10:30)
--- NOTE | 2017-11-06 10:30 | PN ---
Progress Note, Physician History of Present Illness: Pt seen and examined. Chart reviewed, events noted. Pt is alert, afebrile. Has ruiz catheter in place. Some tenderness in Rt inguinal operative site. - Current Medication List Current Medications: Active Medications Docusate Sodium (Colace -) 100 mg PO BID PRN PRN Reason: CONSTIPATION Finasteride (Proscar -) 5 mg PO DAILY [facility] Tamsulosin HCl (Flomax -) 0.4 mg PO DAILY@0830 [facility] Last Admin: 11/05/17 14:50 Dose: 0.4 mg - Objective Vital Signs: Vital Signs Temperature 98 F 11/06/17 10:00 Pulse Rate 68 11/06/17 10:00 Respiratory Rate 18 11/06/17 10:00 Blood Pressure 105/57 11/06/17 10:00 O2 Sat by Pulse Oximetry (%) 98 11/05/17 21:00 Constitutional: Yes: No Distress, Calm Neck: Yes: Supple Cardiovascular: Yes: Regular Rate and Rhythm Respiratory: Yes: CTA Bilaterally Gastrointestinal: Yes: Normal Bowel Sounds, Soft Genitourinary: Yes: Ruiz Present (clear, yellow urine), Other (Rt inguinal site dressed, scrotal edema) Extremities: Yes: WNL Wound/Incision: Yes: Clean/Dry Neurological: Yes: Alert, Oriented Labs: CBC, BMP 11/03/17 06:17 11/03/17 06:17 INR, PTT INR 1.05 (0.82-1.09) 11/01/17 16:00 Problem List - Problems (1) Abdominal pain Code(s): R10.9 - UNSPECIFIED ABDOMINAL PAIN Qualifiers: Abdominal location: lower abdomen, unspecified Qualified Code(s): R10.30 - Lower abdominal pain, unspecified (2) Inguinal hernia Code(s): K40.90 - UNIL INGUINAL HERNIA, W/O OBST OR GANGR, NOT SPCF RECUR Qualifiers: Obstruction and gangrene presence: without obstruction or gangrene Laterality: unilateral Recurrence: recurrent Qualified Code(s): K40.91 - Unilateral inguinal hernia, without obstruction or gangrene, recurrent (3) Urinary retention Code(s): R33.9 - RETENTION OF URINE, UNSPECIFIED Assessment/Plan Incarcerated Rt inguinal hernia s/p repair POD#2 - pt appears stable - evaluation noted - scrotal elevation monitor off antibiotics for now
--- NOTE | 2017-11-06 18:51 | PN ---
Progress Note, Physician History of Present Illness: ruiz in place - Current Medication List Current Medications: Active Medications Docusate Sodium (Colace -) 100 mg PO BID PRN PRN Reason: CONSTIPATION Finasteride (Proscar -) 5 mg PO DAILY [facility] Last Admin: 11/06/17 10:30 Dose: 5 mg Tamsulosin HCl (Flomax -) 0.4 mg PO DAILY@0830 [facility] Last Admin: 11/06/17 10:30 Dose: 0.4 mg - Objective Vital Signs: Vital Signs Temperature 98.7 F 11/06/17 14:38 Pulse Rate 73 11/06/17 14:38 Respiratory Rate 20 11/06/17 14:38 Blood Pressure 116/56 11/06/17 14:38 O2 Sat by Pulse Oximetry (%) 98 11/06/17 09:00 Constitutional: Yes: No Distress HENT: Yes: Atraumatic Neck: Yes: Supple Cardiovascular: Yes: Regular Rate and Rhythm Respiratory: Yes: CTA Bilaterally Gastrointestinal: Yes: Normal Bowel Sounds Extremities: Yes: WNL Neurological: Yes: Alert, Oriented Labs: CBC, BMP 11/03/17 06:17 11/03/17 06:17 INR, PTT INR 1.05 (0.82-1.09) 11/01/17 16:00 Problem List - Problems (1) Abdominal pain Assessment/Plan: resolving Code(s): R10.9 - UNSPECIFIED ABDOMINAL PAIN Qualifiers: Abdominal location: lower abdomen, unspecified Qualified Code(s): R10.30 - Lower abdominal pain, unspecified (2) Inguinal hernia Assessment/Plan: prn pain meds s/p surgery Code(s): K40.90 - UNIL INGUINAL HERNIA, W/O OBST OR GANGR, NOT SPCF RECUR Qualifiers: Obstruction and gangrene presence: without obstruction or gangrene Laterality: unilateral Recurrence: recurrent Qualified Code(s): K40.91 - Unilateral inguinal hernia, without obstruction or gangrene, recurrent (3) Urinary retention Assessment/Plan: ruiz on meds urology eval Code(s): R33.9 - RETENTION OF URINE, UNSPECIFIED
[2017-11-07] MEDS: TAMSULOSIN HCL 0.4 MG CAP.ER.24H (FP) PO SCH (08:36)
[2017-11-07] MEDS: FINASTERIDE 5 MG TABLET (FP) PO SCH (09:28)
--- NOTE | 2017-11-07 12:45 | PN ---
Progress Note, Physician History of Present Illness: Pt states he feels better. Minimal pain in Lt inguinal area. Remains afebrile. - Current Medication List Current Medications: Active Medications Docusate Sodium (Colace -) 100 mg PO BID PRN PRN Reason: CONSTIPATION Finasteride (Proscar -) 5 mg PO DAILY [facility] Last Admin: 11/07/17 09:28 Dose: 5 mg Tamsulosin HCl (Flomax -) 0.4 mg PO DAILY@0830 [facility] Last Admin: 11/07/17 08:36 Dose: 0.4 mg - Objective Vital Signs: Vital Signs Temperature 98.6 F 11/07/17 09:00 Pulse Rate 69 11/07/17 09:00 Respiratory Rate 18 11/07/17 09:00 Blood Pressure 113/58 11/07/17 09:00 O2 Sat by Pulse Oximetry (%) 98 11/07/17 09:00 Constitutional: Yes: No Distress, Calm Cardiovascular: Yes: Regular Rate and Rhythm Respiratory: Yes: Regular Gastrointestinal: Yes: Normal Bowel Sounds, Soft Genitourinary: Yes: Other (no scrotal induration/tenderness) Wound/Incision: Yes: Clean/Dry, Steri Strips Labs: CBC, BMP 11/03/17 06:17 11/03/17 06:17 INR, PTT INR 1.05 (0.82-1.09) 11/01/17 16:00 Problem List - Problems (1) Abdominal pain Code(s): R10.9 - UNSPECIFIED ABDOMINAL PAIN Qualifiers: Abdominal location: lower abdomen, unspecified Qualified Code(s): R10.30 - Lower abdominal pain, unspecified (2) Inguinal hernia Code(s): K40.90 - UNIL INGUINAL HERNIA, W/O OBST OR GANGR, NOT SPCF RECUR Qualifiers: Obstruction and gangrene presence: without obstruction or gangrene Laterality: unilateral Recurrence: recurrent Qualified Code(s): K40.91 - Unilateral inguinal hernia, without obstruction or gangrene, recurrent (3) Urinary retention Code(s): R33.9 - RETENTION OF URINE, UNSPECIFIED Assessment/Plan Incarcerated Rt inguinal hernia s/p repair POD#2 - pt appears stable off antibiotics - continue scrotal elevation and monitor
--- NOTE | 2017-11-07 18:36 | PN ---
Progress Note, Physician History of Present Illness: ruiz in place - Current Medication List Current Medications: Active Medications Docusate Sodium (Colace -) 100 mg PO BID PRN PRN Reason: CONSTIPATION Finasteride (Proscar -) 5 mg PO DAILY [facility] Last Admin: 11/07/17 09:28 Dose: 5 mg Tamsulosin HCl (Flomax -) 0.4 mg PO DAILY@0830 [facility] Last Admin: 11/07/17 08:36 Dose: 0.4 mg - Objective Vital Signs: Vital Signs Temperature 99.1 F 11/07/17 14:46 Pulse Rate 72 11/07/17 14:46 Respiratory Rate 20 11/07/17 14:46 Blood Pressure 115/64 11/07/17 14:46 O2 Sat by Pulse Oximetry (%) 98 11/07/17 09:00 Constitutional: Yes: No Distress HENT: Yes: Atraumatic Neck: Yes: Supple Cardiovascular: Yes: Regular Rate and Rhythm Respiratory: Yes: CTA Bilaterally Gastrointestinal: Yes: Normal Bowel Sounds Extremities: Yes: WNL Neurological: Yes: Alert, Oriented Labs: CBC, BMP 11/03/17 06:17 11/03/17 06:17 INR, PTT INR 1.05 (0.82-1.09) 11/01/17 16:00 Problem List - Problems (1) Abdominal pain Assessment/Plan: resolving Code(s): R10.9 - UNSPECIFIED ABDOMINAL PAIN Qualifiers: Abdominal location: lower abdomen, unspecified Qualified Code(s): R10.30 - Lower abdominal pain, unspecified (2) Inguinal hernia Assessment/Plan: prn pain meds s/p surgery Code(s): K40.90 - UNIL INGUINAL HERNIA, W/O OBST OR GANGR, NOT SPCF RECUR Qualifiers: Obstruction and gangrene presence: without obstruction or gangrene Laterality: unilateral Recurrence: recurrent Qualified Code(s): K40.91 - Unilateral inguinal hernia, without obstruction or gangrene, recurrent (3) Urinary retention Assessment/Plan: ruiz on meds urology eval NEED TO KNOW FROM UROLOGY IF PT CAN BE DC ON RUIZ Code(s): R33.9 - RETENTION OF URINE, UNSPECIFIED
[2017-11-08] MEDS: TAMSULOSIN HCL 0.4 MG CAP.ER.24H (FP) PO SCH (08:59)
[2017-11-08] MEDS: FINASTERIDE 5 MG TABLET (FP) PO SCH (09:00)
--- NOTE | 2017-11-08 12:46 | PN ---
Progress Note, Physician History of Present Illness: stable now wiht foleys catheter - Current Medication List Current Medications: Active Medications Docusate Sodium (Colace -) 100 mg PO BID PRN PRN Reason: CONSTIPATION Finasteride (Proscar -) 5 mg PO DAILY [facility] Last Admin: 11/08/17 09:00 Dose: 5 mg Tamsulosin HCl (Flomax -) 0.4 mg PO DAILY@0830 [facility] Last Admin: 11/08/17 08:59 Dose: 0.4 mg - Objective Vital Signs: Vital Signs Temperature 98.4 F 11/08/17 09:00 Pulse Rate 73 11/08/17 09:00 Respiratory Rate 16 11/08/17 09:00 Blood Pressure 120/69 11/08/17 09:00 O2 Sat by Pulse Oximetry (%) 98 11/07/17 21:00 Constitutional: Yes: No Distress Cardiovascular: Yes: Regular Rate and Rhythm Respiratory: Yes: Regular, CTA Bilaterally Gastrointestinal: Yes: Normal Bowel Sounds, Soft Musculoskeletal: Yes: WNL Extremities: Yes: WNL Neurological: Yes: Alert, Oriented Psychiatric: Yes: Alert, Oriented Labs: CBC, BMP 11/03/17 06:17 11/03/17 06:17 INR, PTT INR 1.05 (0.82-1.09) 11/01/17 16:00 Assessment/Plan Problem List - Problems (1) Abdominal pain Code(s): R10.9 - UNSPECIFIED ABDOMINAL PAIN Qualifiers: Abdominal location: lower abdomen, unspecified Qualified Code(s): R10.30 - Lower abdominal pain, unspecified (2) Inguinal hernia Code(s): K40.90 - UNIL INGUINAL HERNIA, W/O OBST OR GANGR, NOT SPCF RECUR Qualifiers: Obstruction and gangrene presence: without obstruction or gangrene Laterality: unilateral Recurrence: recurrent Qualified Code(s): K40.91 - Unilateral inguinal hernia, without obstruction or gangrene, recurrent 3 scrotal swelling plan continue current mgmt pain mgmt rest as per surgery improving
--- NOTE | 2017-11-08 18:18 | PN ---
Progress Note, Physician - Current Medication List Current Medications: Active Medications Docusate Sodium (Colace -) 100 mg PO BID PRN PRN Reason: CONSTIPATION Finasteride (Proscar -) 5 mg PO DAILY [facility] Last Admin: 11/08/17 09:00 Dose: 5 mg Tamsulosin HCl (Flomax -) 0.4 mg PO DAILY@0830 [facility] Last Admin: 11/08/17 08:59 Dose: 0.4 mg - Objective Vital Signs: Vital Signs Temperature 97.5 F L 11/08/17 14:43 Pulse Rate 74 11/08/17 14:43 Respiratory Rate 18 11/08/17 14:43 Blood Pressure 113/61 11/08/17 14:43 O2 Sat by Pulse Oximetry (%) 95 11/08/17 09:00 Constitutional: Yes: No Distress HENT: Yes: Atraumatic Neck: Yes: Supple Cardiovascular: Yes: Regular Rate and Rhythm Respiratory: Yes: CTA Bilaterally Gastrointestinal: Yes: Normal Bowel Sounds Extremities: Yes: WNL Neurological: Yes: Alert, Oriented Labs: CBC, BMP 11/03/17 06:17 11/03/17 06:17 INR, PTT INR 1.05 (0.82-1.09) 11/01/17 16:00 Problem List - Problems (1) Abdominal pain Assessment/Plan: resolved Code(s): R10.9 - UNSPECIFIED ABDOMINAL PAIN Qualifiers: Abdominal location: lower abdomen, unspecified Qualified Code(s): R10.30 - Lower abdominal pain, unspecified (2) Inguinal hernia Assessment/Plan: prn pain meds s/p surgery Code(s): K40.90 - UNIL INGUINAL HERNIA, W/O OBST OR GANGR, NOT SPCF RECUR Qualifiers: Obstruction and gangrene presence: without obstruction or gangrene Laterality: unilateral Recurrence: recurrent Qualified Code(s): K40.91 - Unilateral inguinal hernia, without obstruction or gangrene, recurrent (3) Urinary retention Assessment/Plan: ruiz on meds urology eval NEED TO KNOW FROM UROLOGY IF PT CAN BE DC ON [facility] Code(s): R33.9 - RETENTION OF URINE, UNSPECIFIED
[2017-11-09] MEDS: TAMSULOSIN HCL 0.4 MG CAP.ER.24H (FP) PO SCH (09:52)
[2017-11-09] MEDS: FINASTERIDE 5 MG TABLET (FP) PO SCH (09:52)
--- NOTE | 2017-11-09 11:11 | PN ---
Progress Note (short form) - Note Progress Note: Pt w ruiz to sd for AUR 4 days Urine currently cloudy 3 mm right non obstructing renal calculus will follow cr nl resolving bowel obstruction Inguinal hernia Would continue ruiz to sd until ready for d/c then give voiding trial If fails can send w ruiz and will do urodynamics Follow urine culture
--- NOTE | 2017-11-09 14:13 | PN ---
Progress Note, Physician History of Present Illness: still with foleys catheter no other issues - Current Medication List Current Medications: Active Medications Docusate Sodium (Colace -) 100 mg PO BID PRN PRN Reason: CONSTIPATION Finasteride (Proscar -) 5 mg PO DAILY [facility] Last Admin: 11/09/17 09:52 Dose: 5 mg Tamsulosin HCl (Flomax -) 0.4 mg PO DAILY@0830 [facility] Last Admin: 11/09/17 09:52 Dose: 0.4 mg - Objective Vital Signs: Vital Signs Temperature 97.7 F 11/09/17 06:00 Pulse Rate 60 11/09/17 06:00 Respiratory Rate 18 11/09/17 09:00 Blood Pressure 114/63 11/09/17 06:00 O2 Sat by Pulse Oximetry (%) 97 11/09/17 09:00 Constitutional: Yes: No Distress, Calm Cardiovascular: Yes: Regular Rate and Rhythm Respiratory: Yes: Regular, CTA Bilaterally Gastrointestinal: Yes: Normal Bowel Sounds, Soft Musculoskeletal: Yes: WNL Extremities: Yes: WNL Wound/Incision: Yes: Clean/Dry Neurological: Yes: Alert, Oriented Psychiatric: Yes: Alert, Oriented Labs: CBC, BMP 11/03/17 06:17 11/03/17 06:17 INR, PTT INR 1.05 (0.82-1.09) 11/01/17 16:00 Assessment/Plan Problem List - Problems (1) Abdominal pain Code(s): R10.9 - UNSPECIFIED ABDOMINAL PAIN Qualifiers: Abdominal location: lower abdomen, unspecified Qualified Code(s): R10.30 - Lower abdominal pain, unspecified (2) Inguinal hernia Code(s): K40.90 - UNIL INGUINAL HERNIA, W/O OBST OR GANGR, NOT SPCF RECUR Qualifiers: Obstruction and gangrene presence: without obstruction or gangrene Laterality: unilateral Recurrence: recurrent Qualified Code(s): K40.91 - Unilateral inguinal hernia, without obstruction or gangrene, recurrent 3 scrotal swelling plan continue current mgmt pain mgmt rest as per surgery improving
--- NOTE | 2017-11-09 15:11 | PN ---
Progress Note, Physician History of Present Illness: ruiz in place - Current Medication List Current Medications: Active Medications Docusate Sodium (Colace -) 100 mg PO BID PRN PRN Reason: CONSTIPATION Finasteride (Proscar -) 5 mg PO DAILY [facility] Last Admin: 11/09/17 09:52 Dose: 5 mg Tamsulosin HCl (Flomax -) 0.4 mg PO DAILY@0830 [facility] Last Admin: 11/09/17 09:52 Dose: 0.4 mg - Objective Vital Signs: Vital Signs Temperature 97.7 F 11/09/17 06:00 Pulse Rate 60 11/09/17 06:00 Respiratory Rate 18 11/09/17 09:00 Blood Pressure 114/63 11/09/17 06:00 O2 Sat by Pulse Oximetry (%) 97 11/09/17 09:00 Constitutional: Yes: No Distress HENT: Yes: Atraumatic Neck: Yes: Supple Cardiovascular: Yes: Regular Rate and Rhythm Respiratory: Yes: CTA Bilaterally Gastrointestinal: Yes: Normal Bowel Sounds Extremities: Yes: WNL Labs: CBC, BMP 11/03/17 06:17 11/03/17 06:17 INR, PTT INR 1.05 (0.82-1.09) 11/01/17 16:00 Problem List - Problems (1) Abdominal pain Assessment/Plan: resolved Code(s): R10.9 - UNSPECIFIED ABDOMINAL PAIN Qualifiers: Abdominal location: lower abdomen, unspecified Qualified Code(s): R10.30 - Lower abdominal pain, unspecified (2) Inguinal hernia Assessment/Plan: s/p surgery stable Code(s): K40.90 - UNIL INGUINAL HERNIA, W/O OBST OR GANGR, NOT SPCF RECUR Qualifiers: Obstruction and gangrene presence: without obstruction or gangrene Laterality: unilateral Recurrence: recurrent Qualified Code(s): K40.91 - Unilateral inguinal hernia, without obstruction or gangrene, recurrent (3) Urinary retention Assessment/Plan: ruiz will dc on meds urology eval Code(s): R33.9 - RETENTION OF URINE, UNSPECIFIED Assessment/Plan DC RUIZ, IF VOIDING WILL DC HOME
--- NOTE | 2017-11-09 17:50 | PATH ---
Surgical Pathology Report Patient Name: LISSETTE HANEY [facility]. Rec. #: [id number] /Age/Gender: 1950 (Age: 67) / M Account: [id number] Location: [address] [place] [address]/[facility] Taken: 11/02/2017 Received: 11/02/2017 Reported: 11/09/2017 Physicians: MD Mis Goins M.D. Specimen(s) Received HERNIA SAC Clinical History Right inguinal hernia Final Diagnosis HERNIA SAC, RIGHT, HERNIORRHAPHY: FIBROMEMBRANOUS AND ADIPOSE TISSUE CONSISTENT WITH HERNIA SAC AND CONTENTS. Electronically Signed Leti Blue M.D. Gross Description Received in formalin labeled "hernia sac," is a 6.5 x 6.0 x 1.2 cm portion of [place] fibromembranous tissue with attached fat, consistent with a hernia sac. Coffee Farmer sections are submitted in one cassette. /11/02/2017 saudi11/02/2017
[2017-11-10] MEDS: FINASTERIDE 5 MG TABLET (FP) PO SCH (09:54)
[2017-11-10] MEDS: TAMSULOSIN HCL 0.4 MG CAP.ER.24H (FP) PO SCH (09:54)
--- NOTE | 2017-11-10 12:00 | PN ---
Progress Note, Physician - Current Medication List Current Medications: Active Medications Docusate Sodium (Colace -) 100 mg PO BID PRN PRN Reason: CONSTIPATION Finasteride (Proscar -) 5 mg PO DAILY [facility] Last Admin: 11/10/17 09:54 Dose: 5 mg Tamsulosin HCl (Flomax -) 0.4 mg PO DAILY@0830 [facility] Last Admin: 11/10/17 09:54 Dose: 0.4 mg - Objective Vital Signs: Vital Signs Temperature 97.3 F L 11/10/17 08:38 Pulse Rate 62 11/10/17 08:38 Respiratory Rate 18 11/10/17 08:38 Blood Pressure 111/70 11/10/17 08:38 O2 Sat by Pulse Oximetry (%) 97 11/09/17 21:00 Labs: CBC, BMP 11/03/17 06:17 11/03/17 06:17 INR, PTT INR 1.05 (0.82-1.09) 11/01/17 16:00 Problem List - Problems (1) Abdominal pain Code(s): R10.9 - UNSPECIFIED ABDOMINAL PAIN Qualifiers: Abdominal location: lower abdomen, unspecified Qualified Code(s): R10.30 - Lower abdominal pain, unspecified (2) Inguinal hernia Code(s): K40.90 - UNIL INGUINAL HERNIA, W/O OBST OR GANGR, NOT SPCF RECUR Qualifiers: Obstruction and gangrene presence: without obstruction or gangrene Laterality: unilateral Recurrence: recurrent Qualified Code(s): K40.91 - Unilateral inguinal hernia, without obstruction or gangrene, recurrent (3) Urinary retention Code(s): R33.9 - RETENTION OF URINE, UNSPECIFIED
--- NOTE | 2017-11-10 13:10 | DS ---
Physical Examination Vital Signs: Vital Signs Temperature 97.3 F L 11/10/17 08:38 Pulse Rate 62 11/10/17 08:38 Respiratory Rate 18 11/10/17 09:00 Blood Pressure 111/70 11/10/17 08:38 O2 Sat by Pulse Oximetry (%) 97 11/10/17 09:00 Constitutional: Yes: No Distress HENT: Yes: Atraumatic Neck: Yes: Supple Cardiovascular: Yes: Regular Rate and Rhythm Respiratory: Yes: CTA Bilaterally Gastrointestinal: Yes: Normal Bowel Sounds Extremities: Yes: WNL Edema: No Peripheral Pulses WNL: Yes Neurological: Yes: Alert, Oriented Labs: CBC, BMP 11/03/17 06:17 11/03/17 06:17 Discharge Summary Reason For Visit: INGUINAL HERNIA Current Active Problems Abdominal pain (Acute) Inguinal hernia (Acute) Urinary retention (Acute) Condition: Stable - Instructions Diet, Activity, Other Instructions: Dr. Dempsey Discharge Instructions Dear LISSETTE HANEY, Post Operative Instructions Physical activity Resume your normal everyday activity as tolerated no heavy lifting or exercise until seen by your surgeon. You may walk unlimited amounts of and climb stairs. You may resume driving the car when you feel safe and comfortable behind the wheel. Wound care If you have a bandage, leave it on, and keep dry for 48 - 72 hours. After that time discard the outer bandage. If there are tapes on the skin under the outer bandage, leave them in place. They will peel off in the next 7 to 10 days. Do Not peel them off. You may shower 2 days after surgery. If there are tapes present on the skin, they can get wet. Diet There are no dietary restrictions. Eat healthy, high-fiber foods. Drink 6 to 8 glasses of liquid each day. This will assist in keeping your bowels are regular. Pain management You may take Tylenol or acetaminophen or Ibuprofen (for example, Motrin, Advil etc.) Any pain prescription medication ordered should be taken as prescribed for moderate to severe pain. Call Dr. Dempsey for any of the following: Severe pain not relieved by medication Fever of 101 or higher Excessive bleeding or drainage on dressing Inability to urinate Call the office at [phone] for a post operative appointment in 7 - 10 days. Referrals: Sean Dempsey MD [Staff Physician] - Ryan Leyva MD [Primary Care Provider] - Alvaro Clark MD [Staff Physician] - - Home Medications Comprehensive Discharge Medication List: Ambulatory Orders Finasteride [Proscar -] 5 mg PO DAILY #30 tablet 11/09/17 Tamsulosin HCl [Flomax -] 0.4 mg PO DAILY@0830 #30 cap.er.[id number] 11/09/17 pt voiding urine on his own , we dc joseph yesterday d/c him home on 2 meds fu surgery and urology as out pt
[2017-11-10 14:18] LABS: BASO % 0.4 % (0-2.0); EOS % 3.8 % (0-4.5); HEMATOCRIT 42.8 % (35.4-49); HEMOGLOBIN 13.9 GM/dL (11.7-16.9); MCH 29.1 pg (25.7-33.7); MCHC 32.4 g/dl (32.0-35.9); MEAN CELL VOLUME 89.9 fl (80-96); MEAN PLT VOLUME 8.8 fl (7.5-11.1); MONO % 7.7 % (3.8-10.2); NEUT % 66.1 % (42.8-82.8); PLATELET COUNT 207 K/MM3 (134-434); RBC 4.76 M/mm3 (4.00-5.60); RDW 13.4 % (11.9-15.9); WHITE BLOOD COUNT 5.9 K/mm3 (4.0-10.0)
[2017-11-10 14:33] VITALS: BP 133/86; PULSE 72; TEMP 97.8
[2017-11-10 14:41] LABS: ALBUMIN 3.9 g/dl (3.4-5.0); ALK PHOS 87 U/L (45-117); ANION GAP 8 (8-16); BILIRUBIN,TOTAL 0.8 mg/dL (0.2-1.0); BLOOD UREA NITROGEN 15 mg/dL (7-18); CALCIUM 8.7 mg/dL (8.5-10.1); CHLORIDE 100 mmol/L (98-107); CO2 30 mmol/L (21-32); GLUCOSE,RANDOM 142 mg/dL (74-106); POTASSIUM 4.3 mmol/L (3.5-5.1); SGOT/AST 22 U/L (15-37); SGPT/ALT 27 U/L (12-78); SODIUM 138 mmol/L (136-145)
--- NOTE | 2017-11-10 15:46 | PN ---
Progress Note, Physician History of Present Illness: stable no new issues still with little urine output but passing urine - Current Medication List Current Medications: Active Medications Docusate Sodium (Colace -) 100 mg PO BID PRN PRN Reason: CONSTIPATION Finasteride (Proscar -) 5 mg PO DAILY [facility] Last Admin: 11/10/17 09:54 Dose: 5 mg Tamsulosin HCl (Flomax -) 0.4 mg PO DAILY@0830 [facility] Last Admin: 11/10/17 09:54 Dose: 0.4 mg - Objective Vital Signs: Vital Signs Temperature 97.8 F 11/10/17 14:32 Pulse Rate 72 11/10/17 14:32 Respiratory Rate 20 11/10/17 14:32 Blood Pressure 133/86 11/10/17 14:32 O2 Sat by Pulse Oximetry (%) 97 11/10/17 09:00 Constitutional: Yes: No Distress, Calm Cardiovascular: Yes: Regular Rate and Rhythm Respiratory: Yes: Regular, CTA Bilaterally Gastrointestinal: Yes: Normal Bowel Sounds, Soft Musculoskeletal: Yes: WNL Extremities: Yes: WNL Wound/Incision: Yes: Clean/Dry Neurological: Yes: Alert, Oriented Psychiatric: Yes: Alert, Oriented Labs: CBC, BMP 11/10/17 13:55 11/10/17 13:55 INR, PTT INR 1.05 (0.82-1.09) 11/01/17 16:00 Assessment/Plan Problem List - Problems (1) Abdominal pain Code(s): R10.9 - UNSPECIFIED ABDOMINAL PAIN Qualifiers: Abdominal location: lower abdomen, unspecified Qualified Code(s): R10.30 - Lower abdominal pain, unspecified (2) Inguinal hernia Code(s): K40.90 - UNIL INGUINAL HERNIA, W/O OBST OR GANGR, NOT SPCF RECUR Qualifiers: Obstruction and gangrene presence: without obstruction or gangrene Laterality: unilateral Recurrence: recurrent Qualified Code(s): K40.91 - Unilateral inguinal hernia, without obstruction or gangrene, recurrent 3 scrotal swelling plan continue current mgmt pain mgmt rest as per surgery improving discussed that if patient unable to pass urine to come back to the hospital follow up with urology
== END 2017-11-10 15:48 | disposition home or self-care (01) | DRG 228 ==
LOC: JER 15:26 → JERBED 20:37 → J5S 11-02 03:12
PROVIDERS: ADMIT Internal Medicine; ATTEND Internal Medicine
PROC: 0YU50JZ Supplement Right Inguinal Region with Synthetic Substitute, Open Approach (ICD-10-PCS; principal; 2017-11-02 09:00)
DX: K40.30 Unilateral inguinal hernia, with obstruction, without gangrene, not specified as recurrent (principal); N99.89 Other postprocedural complications and disorders of genitourinary system; R33.8 Other retention of urine; N50.89 Other specified disorders of the male genital organs; K59.00 Constipation, unspecified; Y83.8 Other surgical procedures as the cause of abnormal reaction of the patient, or of later complication, without mention of misadventure at the time of the procedure; N20.0 Calculus of kidney
CPT/HCPCS: 36415; 74177-TC; 76870-TC; 80048; 80053; 81003; 81015; 83605; 85025; 85027; 85610; 86850; 86900; 86901; 87086; 88302-TC; 93005; 93010; 94010; 94760; 97116-GP; 97161-GP; 99284-25